=== PATIENT | female | born 1940 ===

== ENCOUNTER 2017-10-30 07:00 | Inpatient (IN) | payer OTHER ==
[~2017-10-30] VITALS: Ht 157.5 cm; Wt 83.9 kg
[2017-10-30] MEDS ORDERED: SYNTHROID88 MCG PO (09:27)
[2017-10-30] MEDS ORDERED: VIT D (09:28)
[2017-10-30] MEDS ORDERED: DIOVAN160 M1 PO (09:28)
[2017-10-30] MEDS ORDERED: LOZOL PO (09:28)
[2017-10-30] MEDS ORDERED: ADULT ASPIRIN R81 MG PO (09:29)
[2017-11-20] MEDS ORDERED: VITAMIN D2000 UNIT PO (12:59)
[2017-11-21] MEDS ORDERED: DUI500 PO (15:23)
[2017-11-21] MEDS ORDERED: PERCOCET 5-3251 EACH PO (15:23)
[2017-11-21] MEDS ORDERED: XARELTO10 MG PO (15:23)
== END 2017-11-21 16:02 | DRG 470 ==
LOC: SURG 11-12 07:00 → O/R 11-19 05:50 → PED 11-19 05:50
PROVIDERS: Orthopaedic Surgery
PROC: 0QNF0ZZ Release Left Patella, Open Approach (ICD-10-PCS; 2017-11-19)
PROC: 0SRD0J9 Replacement of Left Knee Joint with Synthetic Substitute, Cemented, Open Approach (ICD-10-PCS; principal; 2017-11-19 04:30)
DX: M17.12 Unilateral primary osteoarthritis, left knee (principal); D62 Acute posthemorrhagic anemia; M81.0 Age-related osteoporosis without current pathological fracture; M22.12 Recurrent subluxation of patella, left knee; E66.01 Morbid (severe) obesity due to excess calories; I10 Essential (primary) hypertension